=== PATIENT | male | born 1935 | race Caucasian/White ===

== ENCOUNTER 2018-11-11 15:32 | Inpatient (IN) | payer MEDICARE, OTHER ==
[~2018-11-11] VITALS: Ht 177.8 cm; Wt 84.6 kg
--- NOTE | ~2018-11-11 | HEMODYNAMI ---
PATIENT:PAMELA MATOS MEDICAL RECORD: [id number] : 35 LOCATION:[facility] D.2103 ADMISSION DATE: 11/11/18 Generatedon:11/14/20188:31 Patient name: PAMELA MATOS Patient #: [id number] : 1935 Date of study: 11/14/2018 Page: Of Hemodynamic Procedure Report Patient Data Patient Demographics Procedure consent was obtained First Name: PAMELA Gender: Male Last Name: CARLO : 1935 Patient #: [id number] Age: 83 year(s) Race: SSN: [id number] Additional ID: [id number] Contact details [address]: [address] [place] [address] State: [place] City: [place] Zip code: [address] Admission Admission Data Admission Date: 11/11/2018 Admission Time: 18:28 Arrival Date: 11/11/2018 Arrival Time: 18:28 Admit Source: Other Insurance Payor: Medicare Room #: D.2103 Height (in.): 70.08 BSA: 1.98 (m2) Height (cm.): 178 BMI: 25.25 (kg/m2) Weight (lbs.): 176.37 Weight (kg.): 80 Lab Results Lab Result Date: 11/14/2018 Lab Result Time: 0:00 Biochemistry Name Units Result Min Max BUN mg/dl 41 --(----)-* 7 18 Creatinine mg/dl 2.3 --(----)-* 0.6 1.3 eGFR ml/min 29 *-(----)-- 90 120 NONAFRICAN CBC Name Units Result Min Max Hemoglobin g/dl 15.1 --(-*--)-- 13.5 17.5 Procedure Procedure Types Cath Procedure Diagnostic Procedure Right Heart Right Heart Cath Right Heart Pharmacology Study Procedure Description Procedure Date Procedure Date: 11/14/2018 Procedure Start Time: 7:59 Procedure End Time: 8:28 Procedure Staff Name Function Ziyad Meléndez MD Performing Physician Duane Quintero RT Monitor Lindsay Carmen RT Scrub Alexandra Lang RN Nurse Max Barrera RN Nurse Procedure Data Cath Procedure Fluoroscopy Diagnostic fluoroscopy Total fluoroscopy Time: 5.9 time: 5.9 min min Diagnostic fluoroscopy Total fluoroscopy dose: 399 dose: 399 mGy mGy Contrast Material Contrast Material Type Amount (ml) Isovue 300 0 Entry Location Entry Primary Successful Side Size Upsize Upsize Entry Closure Barnes ccessful Closure Location (Fr) 1 (Fr) 2 (Fr) Remarks Device Remarks Femoral Right 7 Fr Manual vein Short Compression Estimated blood loss: 5 ml Diagnostic catheters Device Type Used For End Catheter Placement SWAN 7Fr Thermodilution Procedure cather (131F7P) Procedure Complications No complications Procedure Medications Medication Administration Route Dosage 0.9% NaCl I.V. 100 ml/hr Oxygen NC 4 l/min Heparin Flush Bag added to field 2 bags (1000units/500ml NS) Lidocaine 2% added to field 20 Versed I.V. 1 mg Fentanyl I.V. 50 mcg Adenosine IV 3mg/ml I.V. 50 mcg/kg/min Adenosine IV 3mg/ml I.V. 100 mcg/kg/min Adenosine IV 3mg/ml I.V. 150 mcg/kg/min Hemodynamics Rest BSA: 1.98 (m2) HGB: 15.1 (g/dl) O2 Consumption: Estimated: 239.44 (ml/min) O2 Co nsumption indexed: Estimated:120.93 (ml/min/m) Heart Rate: 89 (bpm) Oxygen Saturations Time Location Saturations Hgb (g/dl) O2 Content Use (%) (ml/L) 8:20 PA 76.3 8:21 RV 75.7 8:22 RA 74.3 Pressure Samples Time Site Value (mmHg) Purpose Heart Use Rate(bpm) 8:10 PA 70/28(43) Snapshot 88 8:10 PCW 35/40(33) Snapshot 87 8:11 PA 72/26(41) Snapshot 83 8:13 PA 74/28(43) Snapshot 86 8:16 PA 67/29(43) Snapshot 85 8:18 PA 64/30(43) Snapshot 88 8:19 RV 55/3,9 Snapshot 82 8:21 RA 17/15(11) Snapshot 76 Calculations Shunts (%) Right To 0.04 Content (ml/l) O2 Difference (ml/l) Left O2 MV 152.58 PV-PA(VA) O2 PA 156.69 PV-MV(VV) Snapshots Pre Cath Intra NCS Post Cath Vital Signs Time Heart Resp SPO2 etCO2 NIBP (mmHg) Rhythm Pain Sedation Rate (ipm) (%) (mmHg) Status Level (bpm) 7:53:14 86 27 97 0 144/86(127) NSR 0 (11) 10(A) , No pain 7:57:24 87 27 93 0 143/83(129) NSR 0 (11) 10(A) , No pain 8:01:30 84 21 91 0 141/94(108) NSR 0 (11) 10(A) , No pain 8:05:38 83 17 92 0 129/86(112) NSR 0 (11) 10(A) , No pain 8:09:44 84 21 91 0 132/78(105) NSR 0 (11) 10(A) , No pain 8:13:49 83 18 91 0 139/82(114) NSR 0 (11) 10(A) , No pain 8:17:59 87 21 93 0 141/81(120) NSR 0 (11) 10(A) , No pain 8:22:05 87 23 92 0 139/86(122) NSR 0 (11) 10(A) , No pain 8:26:13 90 23 92 0 147/90(115) NSR 0 (11) 10(A) , No pain Medications Time Medication Route Dose Verified Delivered Reason Notes Effectiveness by by 7:51:48 0.9% NaCl I.V. 100 ml/hr Alexandra Morris Per Rickey Lang physician RN RN 7:52:25 Oxygen NC 4 l/min Max Max for low 02 Lorigan Lorigan sats RN RN 7:52:36 Heparin Flush added 2 bags Max Max used for Bag to Lorigan Lorigan procedure (1000units/500ml field RN RN NS) 7:52:49 Lidocaine 2% added 20ml vial Max Max for local to Lorigan Lorigan anesthetic field RN RN 7:59:08 Versed I.V. 1 mg Max Max for Lorigan Lorigan sedation RN RN 7:59:18 Fentanyl I.V. 50 mcg Max Max for Holly Barrera sedation RN RN 8:11:53 Adenosine IV I.V. 50 Max Max Per 3mg/ml mcg/kg/min Lorigan Lorigan protocol RN RN 8:13:55 Adenosine IV I.V. 100 Max Max Per 3mg/ml mcg/kg/min Lorigan Lorigan protocol RN RN 8:16:52 Adenosine IV I.V. 150 Max Max Per 3mg/ml mcg/kg/min Lorigan Lorleslye protocol RN acquisitions librarian Log Time Note 6:57:51 Diagnostic Cath Status : Urgent 6:58:29 Informed consent obtained and on chart 7:01:34 Admit Source: Other 7:01:47 Arrival Date: 11/11/2018 6:28:00 PM 7:02:09 Insurance Payor : Medicare 7:02:53 Patient Weight : 176.37 lbs 7:02:58 Patient Height : 70.08 inches 7:09:29 Lab Result : Hemoglobin 15.1 g/dl 7:09:29 Lab Result : eGFR NONAFRICAN 29 ml/min 7:09:29 Lab Result : BUN 41 mg/dl 7:09:29 Lab Result : Creatinine 2.3 mg/dl 7:11:07 Procedure Status Urgent Heart Cath (IP). 7:11:11 Time tracking: Regular hours (M-F 7:00 - 5:00) 7:11:15 Plan of Care:Hemodynamics will remain stable., Cardiac rhythm will remain stable., Comfort level will be maintained., Respiratory function will remain adequate., Patient/ family verbilizes understanding of procedure., Procedure tolerated without complication., Recovers from procedure without complications.. 7:20:10 Duane FORTE(R) sent for patient. Start room use. 7:39:35 Patient received from ICU to CCL 2 Alert and oriented. Tansferred to table in Supine position. 7:39:36 Warm blankets applied, and marilynn hugger turned on for patient comfort. 7:39:36 Correct patient and procedure confirmed by team. 7:39:37 ECG and BP/O2 sat monitors applied to patient. 7:51:48 0.9% NaCl 100 ml/hr I.V. was administered by Alexandra Lang RN; Per physician; 7:52:07 Vital chart was started 7:52:25 Oxygen 4 l/min NC was administered by Max Barrera RN; for low 02 sats; 7:52:36 Heparin Flush Bag (1000units/500ml NS) 2 bags added to field was administered by Max Barrera RN; used for procedure; 7:52:49 Lidocaine 2% 20ml vial added to field was administered by Max Barrera RN; for local anesthetic; 7:53:05 Baseline sample Acquired. 7:53:10 Rhythm: sinus rhythm 7:53:14 Full Disclosure recording started 7:53:40 H&P Date Dictated: 11/11/2018 Within 30 days and on chart.. 7:53:41 Pre-procedure instructions explained to patient. 7:53:42 Pre-op teaching completed and patient verbalized understanding. 7:53:44 Family unavailable. 7:53:45 Patient NPO since Midnight. 7:53:47 Is the patient allergic to Iodine/contrast media? No. 7:53:48 Is patient on blood thinner?No 7:53:50 ACC The patient was administered the following blood thiners within the last 24 hours: None 7:53:53 Patient diabetic? No. 7:53:55 Previous problem with sedation/anesthesia? No ? 7:53:56 Snore? No 7:53:57 Sleep apnea? No 7:53:58 Deviated septum? No 7:53:59 Opens mouth fully? Yes 7:54:00 Sticks out tongue? Yes 7:54:09 Airway obstruction? Yes COPD, EMPHYSEMA 7:54:15 Dentures? Yes OUT 7:54:20 Pre procedure: right dorsailis pedis pulse 1+ Palpable, but thready & weak; easily obliterated 7:54:22 Patient pain scale 0/10 ?. 7:54:28 IV patent on arrival in left forearm with 0.9% NaCl at KVO. 7:54:30 Lab results completed and on chart. 7:54:37 Right groin area was prepped with chlora-prep and draped in sterile fashion 7:54:38 Alarms reviewed by R. N. 7:54:39 Sharps counted by scrub and verified by R.N. 7:56:02 Use device set Femoral Dx 7:56:11 Use device set Right Heart Kit 7:56:14 Tegaderm 4 x 4 ([id number]) opened to sterile field. 7:56:15 ACIST Manifold (52424) opened to sterile field. 7:56:16 ACIST Hand Control (39338) opened to sterile field. 7:56:17 ACIST Syringe (72448) opened to sterile field. 7:56:24 Bag Decanter (2002S) opened to sterile field. 7:56:25 Medline Cath Pack ([id number]) opened to sterile field. 7:56:41 SHEATH 7FR [place] (HIO968) opened to sterile field. 7:58:13 --------ALL STOP TIME OUT------ 7:58:14 Final Timeout: patient, procedure, and site verified with staff and physician. All members of the team are in agreement. 7:58:35 Right groin site verified by team. 7:58:43 Fire Safety Assessment: A--An alcohol-based skin anteseptic being used preoperatively., C--Open oxygen or nitrous oxide is being used. 7:58:46 Physical assessment completed. ASA score P 2 - A patient with mild systemic disease as per Ziyad Meléndez MD. 7:58:51 Sedation plan: IV Moderate Sedation Medication:Versed, Fentanyl 7:59:08 Versed 1 mg I.V. was administered by Max Barrera RN; for sedation; 7:59:11 Procedure started. 7:59:16 Local anesthetic to right femoral vein with Lidocaine 2% by Ziyad Meléndez MD.INITIAL ACCESS ONLY 7:59:18 Fentanyl 50 mcg I.V. was administered by Max Barrera RN; for sedation; 8:02:41 Procedure type changed to Cath procedure, Diagnostic procedure, Right Heart, Right Heart Cath, Right Heart Pharmacology Study 8:02:59 A 7 Fr Short sheath was inserted into the Right Femoral vein 8:03:09 A SWAN 7Fr Thermodilution cather (131F7P) was advanced over the wire and used for Procedure. 8:07:31 DIAGNOSTIC WIRE .025 150cm J (724778) opened to sterile field. 8:08:00 .025 J WIRE ADVANCED. 8:09:22 WIRE REMOVED. 8:11:53 Adenosine IV 3mg/ml 50 mcg/kg/min I.V. was administered by Max Barrera RN; Per protocol; 8:13:38 Timer 1 started at 8:11 AM, stopped at 8:13 AM, duration 00:02:18 sec. 8::55 Adenosine IV 3mg/ml 100 mcg/kg/min I.V. was administered by Max Barrera RN; Per protocol; 8::27 Timer 1 started at 8:13 AM, stopped at 8:16 AM, duration 00:02:45 sec. 8::52 Adenosine IV 3mg/ml 150 mcg/kg/min I.V. was administered by Max Barrera RN; Per protocol; ::55 Timer 1 started at 8:16 AM, stopped at 8:18 AM, duration 00:02:19 sec. 8:20:26 PA saturation: 76.3% 8:21:24 RV saturation: 75.7% 8:22:15 RA saturation: 74.3% 8::51 Catheter removed. 8:23:51 Sheath removed intact; hemostasis achieved with Manual Compression to the Right Femoral vein. 8::55 Procedure ended.(Physican Out) 8:25:03 Fluoroscopy time 05.90 minutes. 8:25:07 Fluoroscopy dose: 399 mGy 8:25:07 Flurop Dose total: 399 8:25:19 Dose Area Product 22462 mGy/cm. 8:25:35 Contrast amount:Isovue 300 0ml. 8:25:38 Sharps counted by scrub and verified by R.N. 8:25:39 Insertion/operative site no bleeding no hematoma. 8:25:43 Post Procedure Pulses reassessed and unchanged 8:25:46 Post-procedure physical assessment completed. ASA score P 2 - A patient with mild systemic disease as per Ziyad Meléndez MD. 8:25:48 Post procedure rhythm: unchanged. 8:25:50 Estimated blood loss: 5 ml 8:25:52 Post procedure instruction explained to patient.Patient verbalizes understanding. 8:25:52 Patient needs reinforcement of post procedure teaching. 8:26:14 Procedure and supply charges have been captured, reviewed, submitted and are correct. 8:26:17 Procedure Complication : No complications 8:28:32 Vital chart was stopped 8:28:33 See physician's report for complete and final results. 8:28:38 Report given to PCU. 8:28:43 Patient transfered to PCU with Bed. 8:28:46 Procedure ended. 8:28:46 Full Disclosure recording stopped 8:28:56 End room use (Document Last) 8:29:35 End room use (Document Last) Device Usage Item Name Manufacture Quantity Catalog Hospital Part Current Minima l Lot# / Number Charge Number Stock Stock Serial# Code Tegaderm 4 x 4 3M 1 1626W [id number] [id number] [id number] 5 (1626W) ACIST Manifold Acist 1 77243 354439 735251 422769 5 (73984) Medical Systems Inc ACIST Hand Acist 1 35635 569381 381549 208758 5 Control Medical (49025) Systems Inc ACIST Syringe Acist 1 77697 786391 748690 984924 20 (61870) Medical Systems Inc Bag Decanter Microtek 1 2001S 602292 07777 450107 5 (2001S) Medical Inc. Medline Cath Medline 1 [id number] 287859 92427 317164 5 Pack ([id number]) SHEATH 7FR Terumo 1 [id number] 359448 556281 277631 5 [place] (DRB853) SWAN 7Fr Warner 1 131F7P 129332 27290 269347 3 Thermodilution Lifesciences cather (131F7P) DIAGNOSTIC [facility] 1 109269 586552 682106 622440 2 WIRE .025 150cm J (785141) Signature Audit [place] Stage Time Signature Unsigned Intra-Procedure 11/14/2018 Max 8:29:35 AM Holly RN; Duane Quintero RT(R); Ziyad Meléndez MD [address] [place] [address]
[2018-11-11] MEDS ORDERED: PROVENTIL/2.5 MG/3 M INH (15:53)
[2018-11-11 16:23] LABS: BASOPHILS 0.5 % (0-2); EOSINOPHILS 2.2 % (0-7); HEMATOCRIT 48.2 % (42.0-54.0); HEMOGLOBIN 16.5 g/dL (13.5-17.5); IMMATURE GRANULOCYTES 0.3 % (0-5); LYMPHOCYTES 8.4 % (15-50); MCH 29.8 pg (26.0-34.0); MCHC 34.2 g/dL (31.0-37.0); MCV 87.2 fL (80.0-100.0); MEAN PLATELET VOLUME 10.3 fL (7.4-10.4); MONOCYTES 7.9 % (2-11); NEUTROPHILS 80.7 % (40-80); PLATELET COUNT 809 10x3/uL (130-400); RBC 5.53 10x6/uL (4.20-6.10); RDW 16.1 % (11.5-14.5); WBC 7.6 10x3/uL (4.8-10.8)
[2018-11-11 16:28] LABS: APTT 31.2 SECONDS (22.8-39.4); INR 1.24 (0.85-1.17); PROTIME 15.1 SECONDS (11.6-15.0)
[2018-11-11 16:34] LABS: ALBUMIN 3.2 g/dL (3.4-5.0); ALKALINE PHOSPHATASE 92 U/L (46-116); ALT (SGPT) 22 U/L (10-68); BILIRUBIN - TOTAL 1.21 mg/dL (0.2-1.3); CALC OSMOLALITY 296 mosm/kg (275-300); CALCIUM 8.9 mg/dL (8.5-10.1); CARBON DIOXIDE 27.6 mmol/L (21.0-32.0); CHLORIDE - SERUM 109 mmol/L (98-107); CREATININE - SERUM 2.4 mg/dL (0.6-1.3); GLUCOSE 122 mg/dL (74-106); POTASSIUM - SERUM 5.2 mmol/L (3.5-5.1); PROTEIN - SERUM 6.3 g/dL (6.4-8.2); SODIUM 144 mmol/L (136-145); UREA NITROGEN 39 mg/dL (7-18); eGFR NON AFRICAN AMERICAN 28 mL/min (90-120)
[2018-11-11 16:45] LABS: CKMB 2.7 U/L (0.0-3.6); CREATINE KINASE 74 UL (21-232); PRO BNP 10348 pg/mL (0-450); TROPONIN-I 0.028 ng/mL (0.000-0.060)
--- NOTE | 2018-11-11 18:57 | NUR ---
Spoke to ER Registration who stated the patient is not a [facility] patinet. She stated he has medicare and . Corrine Cardozo RN, CCM
[2018-11-11 20:00] VITALS: BP 182/95
[2018-11-12] VITALS (7 sets, daily range): BP systolic 123–182; BP diastolic 64–95; BMI 25.3
--- NOTE | 2018-11-12 03:26 | NUR ---
I have reviewed this patient and I concur with the Shift Assessment completed by the Licensed Practical Nurse today this shift.
[2018-11-12 05:16] LABS: ALBUMIN 2.9 g/dL (3.4-5.0); ANION GAP 13.3 mmol/L (8-16); BILIRUBIN - TOTAL 1.04 mg/dL (0.2-1.3); CALCIUM 8.6 mg/dL (8.5-10.1); CARBON DIOXIDE 30.8 mmol/L (21.0-32.0); CREATININE - SERUM 2.6 mg/dL (0.6-1.3); MAGNESIUM - SERUM 1.9 mg/dL (1.8-2.4); PHOSPHOROUS 4.3 mg/dL (2.5-4.9); PROTEIN - SERUM 6.3 g/dL (6.4-8.2)
[2018-11-12 05:18] LABS: POTASSIUM - SERUM 4.1 mmol/L (3.5-5.1)
[2018-11-12 05:26] LABS: BASOPHILS 0 % (0-2); EOSINOPHILS 0.2 % (0-7); HEMOGLOBIN 15.7 g/dL (13.5-17.5); IMMATURE GRANULOCYTES 0.2 % (0-5); LYMPHOCYTES 4.4 % (15-50); MCH 29.7 pg (26.0-34.0); MCHC 34.1 g/dL (31.0-37.0); MEAN PLATELET VOLUME 10.6 fL (7.4-10.4); MONOCYTES 0.7 % (2-11); NEUTROPHILS 94.5 % (40-80); PLATELET COUNT 714 10x3/uL (130-400); RBC 5.29 10x6/uL (4.20-6.10); RDW 15.8 % (11.5-14.5); WBC 5.4 10x3/uL (4.8-10.8)
--- NOTE | 2018-11-12 08:50 | NUR ---
CALLED AND SPOKE WITH Milagros SIMPSON ABOUT PT BP BEING 181/91 RIGHT ARM AND 170/90 IN LEFT ARM. REC'D NEW ORDERS FOR APRESOLINE 10 MG EVERY 6 HOURS FOR SYSTOLIC BP GREATER THAN 170.
--- NOTE | 2018-11-12 08:59 | NUR ---
TREATED B/P OF ORDERED.
[2018-11-12 09:41] LABS: APPEARANCE CLEAR (CLEAR); BILIRUBIN NEGATIVE (NEGATIVE); COLOR STRAW (YELLOW); GLUCOSE NEGATIVE (NEGATIVE); KETONE NEGATIVE (NEGATIVE); NITRITE NEGATIVE (NEGATIVE); PROTEIN TRACE mg/dL (NEGATIVE); SPECIFIC GRAVITY 1.005 (1.005-1.020); UROBILINOGEN NORMAL (NORMAL)
[2018-11-12 09:42] LABS: BACTERIA NONE SEEN /hpf (NONE SEEN); EPITHELIAL CELLS RARE /hpf (0-5); RED CELLS - URINE RARE /hpf (0-5); WHITE CELLS - URINE NSEEN /hpf (0-5)
--- NOTE | 2018-11-12 14:15 | NUR ---
I have reviewed this patient and I concur with the Shift Assessment completed by the Licensed Practical Nurse today this shift.
--- NOTE | 2018-11-12 18:17 | NUR ---
DR QUINN WAS CONTACTED ABOUT ORDER BVDS PT JUST HAD LEFT VDS LEGS TODAY PER DR QUINN, HOLD ON RT AT THIS TIME. LEFT NOT NEEDED. GCATES,RDMS
[2018-11-13 00:30] VITALS: BP 124/66
[2018-11-13 04:25] LABS: BASOPHILS 0 % (0-2); EOSINOPHILS 0 % (0-7); HEMATOCRIT 43.4 % (42.0-54.0); IMMATURE GRANULOCYTES 0.2 % (0-5); LYMPHOCYTES 1.8 % (15-50); MCH 29.9 pg (26.0-34.0); MCHC 34.6 g/dL (31.0-37.0); MCV 86.5 fL (80.0-100.0); MEAN PLATELET VOLUME 10.4 fL (7.4-10.4); MONOCYTES 2.4 % (2-11); NEUTROPHILS 95.6 % (40-80); PLATELET COUNT 695 10x3/uL (130-400); RBC 5.02 10x6/uL (4.20-6.10); RDW 15.6 % (11.5-14.5)
[2018-11-13 04:30] VITALS: BP 120/73
[2018-11-13 04:36] LABS: WBC 10.6 10x3/uL (4.8-10.8)
[2018-11-13 04:41] LABS: ANION GAP 9.8 mmol/L (8-16); CALCIUM 8.1 mg/dL (8.5-10.1); CARBON DIOXIDE 31.6 mmol/L (21.0-32.0); CREATININE - SERUM 2.3 mg/dL (0.6-1.3); MAGNESIUM - SERUM 1.7 mg/dL (1.8-2.4)
[2018-11-13 04:44] LABS: PHOSPHOROUS 2.9 mg/dL (2.5-4.9); POTASSIUM - SERUM 3.4 mmol/L (3.5-5.1)
--- NOTE | 2018-11-13 07:15 | NUR ---
PT RESTING IN BED, SHIFT ASSESSMENT PERFORMED. DENIES ANY NEEDS AT THIS TIME, WILL CONT TO FOLLOW POC
[2018-11-13 08:35] VITALS: BP 137/71
--- NOTE | 2018-11-13 12:20 | NUR ---
PT RESTING IN BED, DENIES ANY NEEDS AT THIS TIME, WILL CONT TO FOLLOW POC
[2018-11-13 12:45] VITALS: BP 130/68
[2018-11-13 16:45] VITALS: BP 152/61
[2018-11-13 16:51] VITALS: Ht 177.8 cm; Wt 84.6 kg
[2018-11-13 17:23] LABS: % SATURATION 15 % (15-55); IRON 43 ug/dl (35-150); TOTAL IRON BIND CAPACITY 275 ug/dl (260-445); UNSAT IRON BIND CAPACITY 232 ug/dl (150-375)
--- NOTE | 2018-11-13 18:07 | NUR ---
PT SITTING UP IN BED WATCHING TV. DENIES ANY NEEDS AT THIS TIME, CALL LIGHT WITHIN REACH. WILL CONT TO FOLLOW POC
[2018-11-13 18:25] LABS: BASOPHILS 0 % (0-2); EOSINOPHILS 0 % (0-7); HEMATOCRIT 43.6 % (42.0-54.0); HEMOGLOBIN 15.1 g/dL (13.5-17.5); IMMATURE GRANULOCYTES 0.1 % (0-5); LYMPHOCYTES 1.2 % (15-50); MCH 30.1 pg (26.0-34.0); MCHC 34.6 g/dL (31.0-37.0); MEAN PLATELET VOLUME 10.5 fL (7.4-10.4); MONOCYTES 1.2 % (2-11); NEUTROPHILS 97.5 % (40-80); PLATELET COUNT 772 10x3/uL (130-400); RBC 5.01 10x6/uL (4.20-6.10); RDW 15.9 % (11.5-14.5)
[2018-11-13 18:31] LABS: WBC 13.9 10x3/uL (4.8-10.8)
[2018-11-13 19:28] LABS: ANION GAP 16.1 mmol/L (8-16); CALCIUM 8.4 mg/dL (8.5-10.1); CARBON DIOXIDE 26.6 mmol/L (21.0-32.0); CREATININE - SERUM 2.3 mg/dL (0.6-1.3); POTASSIUM - SERUM 3.7 mmol/L (3.5-5.1)
[2018-11-14 01:14] VITALS: BP 125/66
[2018-11-14 05:07] VITALS: BP 102/49
[2018-11-14 05:43] LABS: BASOPHILS 0 % (0-2); EOSINOPHILS 0 % (0-7); HEMATOCRIT 43.4 % (42.0-54.0); HEMOGLOBIN 14.9 g/dL (13.5-17.5); IMMATURE GRANULOCYTES 0.4 % (0-5); LYMPHOCYTES 1.8 % (15-50); MCH 29.6 pg (26.0-34.0); MCHC 34.3 g/dL (31.0-37.0); MCV 86.3 fL (80.0-100.0); MEAN PLATELET VOLUME 10.3 fL (7.4-10.4); MONOCYTES 1.4 % (2-11); NEUTROPHILS 96.4 % (40-80); PLATELET COUNT 710 10x3/uL (130-400); RBC 5.03 10x6/uL (4.20-6.10); WBC 13.4 10x3/uL (4.8-10.8)
[2018-11-14 06:30] LABS: CALCIUM 8.2 mg/dL (8.5-10.1); CARBON DIOXIDE 28.3 mmol/L (21.0-32.0); CREATININE - SERUM 2.1 mg/dL (0.6-1.3); MAGNESIUM - SERUM 1.7 mg/dL (1.8-2.4); PHOSPHOROUS 3.5 mg/dL (2.5-4.9); POTASSIUM - SERUM 3.3 mmol/L (3.5-5.1)
--- NOTE | 2018-11-14 08:12 | NUR ---
PATIENT IS RESTING QUIETLY, DENIES ANY NEEDS AT THIS TIME.
[2018-11-14 08:47] VITALS: BP 131/80
--- NOTE | 2018-11-14 09:19 | NUR ---
PATIENT RETURNED FROM RIGHT HEART CATH BY DR GRAJEDA. WENT IN THROUGH [facility], THERE IS A DRESSING IN PLACE. THEY WERE CHECKING HIS PRESSURES.
--- NOTE | 2018-11-14 09:21 | NUR ---
PATIENT IS RESTING ON HIS BACK , HE IS TALKING AND ALERT AND ORIENTED. HE HAS FRIENDS AT BEDSIDE.
--- NOTE | 2018-11-14 10:59 | NUR ---
Nutrition Follow-up: NPO this AM for heart cath. Reports good appetite otherwise. Diet: NPO PO intake: 100% Wt: 176# Last BM: 11/13 Labs noted: K+ 3.3, Ca 8.2, Glu 189, PO4 3.5 Meds noted: Prednisone, Folate, NS @ 40, KDur When medically feasible, may consider cardiac carb consistent diet (K+ low, PO4 wnl; Glu elevated since admit). RD following.
[2018-11-14 12:30] VITALS: BP 130/67
[2018-11-14 16:40] VITALS: BP 112/62
--- NOTE | 2018-11-14 17:26 | NUR ---
PATIENT IS HAVING A COUGHING FIT. O2 UP TO 12 HIGH FLOW WITH HUMIDITY.
--- NOTE | 2018-11-14 17:37 | NUR ---
REPORTED COUGHING FIT TO JOELLE MAYES, AND DR SANTOS.
[2018-11-14 20:00] VITALS: BP 118/76
[2018-11-15 00:32] VITALS: BP 145/78
[2018-11-15 04:00] VITALS: BP 139/75
[2018-11-15 04:38] LABS: BASOPHILS 0 % (0-2); EOSINOPHILS 0 % (0-7); HEMATOCRIT 44.6 % (42.0-54.0); HEMOGLOBIN 15.3 g/dL (13.5-17.5); IMMATURE GRANULOCYTES 0.3 % (0-5); LYMPHOCYTES 3.2 % (15-50); MCH 29.8 pg (26.0-34.0); MCHC 34.3 g/dL (31.0-37.0); MCV 86.9 fL (80.0-100.0); MEAN PLATELET VOLUME 10.2 fL (7.4-10.4); MONOCYTES 3.6 % (2-11); NEUTROPHILS 92.9 % (40-80); PLATELET COUNT 729 10x3/uL (130-400); RBC 5.13 10x6/uL (4.20-6.10); RDW 16.2 % (11.5-14.5); WBC 11.2 10x3/uL (4.8-10.8)
[2018-11-15 05:01] LABS: ANION GAP 11.2 mmol/L (8-16); CALCIUM 8.7 mg/dL (8.5-10.1); CARBON DIOXIDE 30.3 mmol/L (21.0-32.0); CREATININE - SERUM 2.1 mg/dL (0.6-1.3); MAGNESIUM - SERUM 1.9 mg/dL (1.8-2.4)
[2018-11-15 05:02] LABS: POTASSIUM - SERUM 4.5 mmol/L (3.5-5.1)
--- NOTE | 2018-11-15 07:30 | NUR ---
A/A/OX4. STATES HE IS WANTING TO BE DISCHARGED TODAY. DENIES ANY SOB OR PAIN. 02 ON PER N/C AT 4L/M HF. IV PATENT TO LEFT FOREARM WITHOUT REDNESS OR EDEMA. ASSESSMENT COMPLETED AND WILL CONTINUE POC.
[2018-11-15 08:50] VITALS: BP 149/92
[2018-11-15 11:10] LABS: ANA REFLEX - DIRECT Negative (Negative)
[2018-11-15 12:21] VITALS: BP 146/54
--- NOTE | 2018-11-15 14:17 | NUR ---
I have reviewed this patient and I concur with the Shift Assessment completed by the Licensed Practical Nurse today this shift.
[2018-11-15 16:50] VITALS: BP 143/89
--- NOTE | 2018-11-15 19:28 | NUR ---
PT CARE ASSUMED. BEDSIDE REPORT COMPLETED. PT IN BED RR EVEN AND UNLABORED. NO S/S OF DISTRESS NOTED AT THIS TIME. PT DENIES NEEDS. CALL LIGHT IN REACH. WILL CPOC.
[2018-11-15 20:00] VITALS: BP 125/79
[2018-11-16 00:08] VITALS: BP 142/78
[2018-11-16 04:00] VITALS: BP 127/78
[2018-11-16 05:16] LABS: BASOPHILS 0 % (0-2); EOSINOPHILS 0 % (0-7); HEMATOCRIT 43.4 % (42.0-54.0); HEMOGLOBIN 15.1 g/dL (13.5-17.5); IMMATURE GRANULOCYTES 0.4 % (0-5); MCHC 34.8 g/dL (31.0-37.0); MCV 86.3 fL (80.0-100.0); MEAN PLATELET VOLUME 10.3 fL (7.4-10.4); MONOCYTES 2.2 % (2-11); NEUTROPHILS 95.4 % (40-80); PLATELET COUNT 677 10x3/uL (130-400); RBC 5.03 10x6/uL (4.20-6.10); RDW 16.3 % (11.5-14.5); WBC 8.9 10x3/uL (4.8-10.8)
[2018-11-16 05:28] LABS: ANION GAP 12.6 mmol/L (8-16); CALCIUM 8.8 mg/dL (8.5-10.1); CARBON DIOXIDE 28.3 mmol/L (21.0-32.0); CREATININE - SERUM 1.7 mg/dL (0.6-1.3); MAGNESIUM - SERUM 2.1 mg/dL (1.8-2.4); PHOSPHOROUS 3.5 mg/dL (2.5-4.9); POTASSIUM - SERUM 4.9 mmol/L (3.5-5.1)
--- NOTE | 2018-11-16 07:00 | NUR ---
RECEIVED REPORT. ASSUMED CARE OF PATIENT. RESTING IN BED WITH EYES OPEN, WONDERING IF HE WILL GET TO GO HOME TODAY. CALL LIGHT WITHIN REACH. DENIES NEEDS AT THIS TIME. IV FLUIDS INFUSING TO LEFT HAND. NO DISTRESS.
[2018-11-16 09:36] VITALS: BP 155/90
[2018-11-16 13:42] VITALS: BP 131/80
[2018-11-16] MEDS ORDERED: NORVASC5 MG PO (15:22)
[2018-11-16] MEDS ORDERED: PREDNISONE10 MG PO (15:23)
[2018-11-16] MEDS ORDERED: PEPCID PO (15:23)
[2018-11-16] MEDS ORDERED: LEVOFLOXACIN500 MG PO (15:40)
[2018-11-16] MEDS ORDERED: COUMADIN5 MG PO (16:15)
[2018-11-16] MEDS ORDERED: LOVENOX30 MG/0.3 SC (16:15)
--- NOTE | 2018-11-16 16:25 | NUR ---
SPOKE WITH DR DASIA CHEUNG ANTICOAGULANT. SHE REC LOVENOX 30 MG SQ QD X 7 DAYS, AND COUMADIN 5 MG DAILY. ADVISED JOELLE SIMPSON [facility], OF RECOMMENDATIONS AND AGREED. RX FOR COUMADIN ISSUED TO [facility]. THEY DO NOT HAVE LOVENOX 30MG IN STOCK. CALLED [facility] [address] AND HAVE IN STOCK, RX CALLED THERE, SPOKE WITH SADI, PHARMACIST. [phone].
--- NOTE | 2018-11-16 16:51 | NUR ---
PATIENT JUST RECEIVED PM MEAL TRAY AND CONSUMING DINNER. INFORMED PATIENT WHEN HE GETS FINISHED, TURN HIS CALL LIGHT ON AND THIS TRAVELING AUDITOR WILL COME AND REMOVE HIS IV. PATIENT VERBALIZED UNDERSTANDING.
--- NOTE | 2018-11-16 17:01 | MORECARE ---
CASE MANAGEMENT DISCHARGE SUMMARY PATIENT: PAMELA MATOS UNIT: [id number] ADM DATE: 11/11/18 AGE: 83 : 35 SEX: M ROOM/BED: D.2103 AUTHOR: KATIE CRUZ PHYSICIAN: REFERRING PHYSICIAN: JUNE SCHRADER MD DATE OF SERVICE: 11/16/18 Discharge Plan Patient Name: PAMELA MATOS Facility: [facility]:[place] : 1935 Planned Disposition: Anticipated Discharge Date: Discharge Date: Expected LOS: Initial Reviewer: [email or web address] Initial Review Date: 11/11/2018 Generated: 11/16/18 6:00 pm Coverage Notice Reviewer: [email or web address] - Bhavani Allan Notice Issued Date-Time: 11/16/2018 12:12 Notice Type: Medicare Outpatient Observation Notice Notice Delivered To: Patient Relationship to Patient: Self Supervisor [employer] Name: Pamela Matos Delivery Method: HAND - Hand Delivered Megan Days: Prior Verbal Notification: Recipient Understood Notice: Yes Recipient Signature: Yes Med Rec Note Co-signed by Attending: Coverage Notice Comment: Patient Name: PAMELA MATOS Page [phone] at 1701 All edits/amendments must be made on the electronic document DICTATION DATE: 11/16/181699 ENGINEERING AND OPERATIONS DIRECTOR: JOHNNA 11/16/181699 RPT#: [id number] DC DATE: STATUS: ADM IN [facility] [address] [place] [address] END OF REPORT
--- NOTE | 2018-11-16 17:15 | NUR ---
22 GAUGE IV CATHETER REMOVED FROM LEFT WRIST. CATHETER TIP INTACT. NO BLEEDING FROM SITE. 2X2 GAUZE APPLIED AND SECURED WITH BANDAID. TOELRATED IV REMOVAL WELL.
--- NOTE | 2018-11-16 17:19 | MORECARE ---
CASE MANAGEMENT DISCHARGE SUMMARY PATIENT: PAMELA MATOS UNIT: [id number] ADM DATE: 11/11/18 AGE: 83 : 35 SEX: M ROOM/BED: D.2103 AUTHOR: KATIE CRUZ PHYSICIAN: REFERRING PHYSICIAN: JUNE SCHRADER MD DATE OF SERVICE: 11/16/18 Discharge Plan Patient Name: PAMELA MATOS Facility: [facility]:[place] : 1935 Planned Disposition: Anticipated Discharge Date: Discharge Date: Expected LOS: Initial Reviewer: [email or web address] Initial Review Date: 11/11/2018 Generated: 11/16/18 6:19 pm Comments DCP- Discharge Planning Updated by [email or web address]: Bhavani Allan on 11/16/18 4:[address] CM met with patient for DC planning needs. CM explained the purpose of interview, patient gives permission for same. Patient states he lives independently @[facility], in [address] and a friend will drive him home today. Patient routinely drives himself. Patient gives permission to speak with his son, Jason Matos @#[phone] (primary). Patient states he is independent with his care. PCP: [place]. Pharmacy: [place], [facility]. His regular pharmacy is closed today, so his Lovenox was called in to [facility] and discharge meds were called to [facility], per nurse on medical floor. Patient states he does not need HHS, that he will be able to give himself his shots. DME: walker (does not use) from the [place], Home O2 and portable, shower chair, grab bars. Emergency contact: Jason Matos (son) [phone]. Community Resources: none. Patient states he does not require additional services at this time. Patient states he is close to the facility dining area. He states he feels safe discharging to his home and his son checks on him frequently. Denies being admitted to a hospital within past 30 days. CM will follow and assist with DC needs PRN. Coverage Notice Reviewer: [id number] - Bhavani Allan Notice Issued Date-Time: 11/16/2018 12:12 Notice Type: Medicare Outpatient Observation Notice Notice Delivered To: Patient Relationship to Patient: Self Svp [employer] Cooking Name: Pamela Matos Delivery Method: HAND - Hand Delivered Megan Days: Prior Verbal Notification: Recipient Understood Notice: Yes Recipient Signature: Yes Med Rec Note Co-signed by Attending: Coverage Notice Comment: Last DP export: 11/16/18 4:01 p Patient Name: PAMELA MATOS Page [phone] at 1719 All edits/amendments must be made on the electronic document DICTATION DATE: 11/16/181718 FIRE TRUCK DRIVER: JOHNNA 11/16/181718 RPT#: [id number] DC DATE: STATUS: ADM IN [facility] [address] [place] [address] END OF REPORT
--- NOTE | 2018-11-16 17:26 | MORECARE ---
CASE MANAGEMENT DISCHARGE SUMMARY PATIENT: PAMELA MATOS UNIT: [id number] ADM DATE: 11/11/18 AGE: 83 : 35 SEX: M ROOM/BED: D.2103 AUTHOR: ANTHONYDOC PHYSICIAN: REFERRING PHYSICIAN: JUNE SCHRADER MD DATE OF SERVICE: 11/16/18 Discharge Plan Patient Name: PAMELA MATOS Facility: [facility]:[place] : 1935 Planned Disposition: Anticipated Discharge Date: Discharge Date: Expected LOS: Initial Reviewer: [email or web address] Initial Review Date: 11/11/2018 Generated: 11/16/18 6:25 pm Comments DCP- Discharge Planning Updated by [email or web address]: Bhavani Allan on 11/16/18 4:[address] CM met with patient for DC planning needs. CM explained the purpose of interview, patient gives permission for same. Patient states he lives independently @[facility], in [address] and a friend will drive him home today. Patient routinely drives himself. Patient gives permission to speak with his son, Jason Matos @[phone] (primary). Patient states he is independent with his care. [place]acy[place], [facility]. His regular pharmacy is closed today, so his Lovenox was called in to [facility] with co-pay $50.00 and discharge meds were called to [facility], per nurse on medical floor. CM made patient aware of the different pharmacies used. Patient states he does not need HHS, that he will be able to give himself his shots. DME: walker (does not use) from the [place], Home O2 and portable, shower chair, grab bars. Emergency contact: Jason Matos (son) [phone]. Community Resources: none. Patient states he does not require additional services at this time. Patient states he is close to the facility dining area. He states he feels safe discharging to his home and his son checks on him frequently. Denies being admitted to a hospital within past 30 days. CM will follow and assist with DC needs PRN. Coverage Notice Reviewer: [email or web address] - Bhavani Jerrell Notice Issued Date-Time: 11/16/2018 12:12 Notice Type: Medicare Outpatient Observation Notice Notice Delivered To: Patient Relationship to Patient: Self Rrt Name: Pamela Matos Delivery Method: HAND - Hand Delivered Megan Days: Prior Verbal Notification: Recipient Understood Notice: Yes Recipient Signature: Yes Med Rec Note Co-signed by Attending: Coverage Notice Comment: Last DP export: 11/16/18 4:19 p Patient Name: PAMELA MATOS Page [phone] at 1726 All edits/amendments must be made on the electronic document DICTATION DATE: 11/16/181724 RISK CONTROL MANAGER: JOHNNA 11/16/181724 RPT#: [id number] DC DATE: STATUS: ADM IN [facility] [address] [place] [address] END OF REPORT
--- NOTE | 2018-11-16 17:45 | NUR ---
DISCHARGE INSTRUCTIONS PROVIDED TO PATIENT. NO FAMILY PRESENT. PATIENT VERBALIZED UNDERSTANDING OF ALL INSTRUCTIONS PROVIDED. INSTRUCTIONS PROVIDED TWICE DUE TO PATIENT CONFUSING WHEN TO NEGATIVE RESTORER HIS MEDICATION VS WHEN TO CALL AND SCHEDULE HIS FOLLOW UP APPOINTMENTS. DIRECT NUMBER TO THE NURSES STATION PROVIDED AND ASKED PATIENT TO PLEASE CALL IF HE GETS HOME AND DOES NOT REMEMBER THE INSTRUCTIONS OR HAS ANY QUESTIONS. PATIENT VERBALIZED HIS UNDERSTANDING.
--- NOTE | 2018-11-16 18:06 | NUR ---
PATIENT LEFT UNIT VIA WHEELCHAIR WITH ALL PERSONAL BELONGINGS AT THIS TIME. PATIENT DISCHARGED TO HOME. PATIENT IN NO DISTRESS UPON LEAVING UNIT.
--- NOTE | 2018-11-18 07:37 | MORECARE ---
CASE MANAGEMENT DISCHARGE SUMMARY PATIENT: PAMELA MATOS UNIT: [id number] ADM DATE: 11/11/18 AGE: 83 : 35 SEX: M ROOM/BED: D.210 AUTHOR: ANTHONY,DOC PHYSICIAN: REFERRING PHYSICIAN: JUNE SCHRADER MD DATE OF SERVICE: 11/18/18 Discharge Plan Patient Name: PAMELA MATOS Facility: [facility]:[place] : 1935 Planned Disposition: Home Anticipated Discharge Date: 11/16/18 Discharge Date: 11/16/2018 Expected LOS: 5 Initial Reviewer: [email or web address] Initial Review Date: 11/11/2018 Generated: 11/18/18 8:36 am Comments DCP- Discharge Planning Updated by [email or web address]: Bhavani Allan on 11/16/18 4:[address] CM met with patient for DC planning needs. CM explained the purpose of interview, patient gives permission for same. Patient states he lives independently @[facility], in [address] and a friend will drive him home today. Patient routinely drives himself. Patient gives permission to speak with his son, Jason Matos @[phone] (primary). Patient states he is independent with his care. PCP: [facility]. Pharmacy: [facility] . His regular pharmacy is closed today, so [facility].00 and discharge meds were called to [facility], per nurse on medical floor. CM made patient aware of the different pharmacies used. Patient states he does not need HHS, that he will be able to give himself his shots. D[facility] not [facility], Home O2 and portable, shower chair, grab bars. Emergency contact: Jason Matos (son) [phone]. Community Resources: none. Patient states he does not require additional services at this time. Patient states he is close to the facility dining area. He states he feels safe discharging to his home and his son checks on him frequently. Denies being admitted to a hospital within past 30 days. CM will follow and assist with DC needs PRN. Coverage Notice Reviewer: [email or web address] Serena Allan Notice Issued Date-Time: 11/16/2018 12:12 Notice Type: Medicare Outpatient Observation Notice Notice Delivered To: Patient Relationship to Patient: Self Custodian Supervisor Name: Pamela Matos Delivery Method: HAND - Hand Delivered Megan Days: Prior Verbal Notification: Recipient Understood Notice: Yes Recipient Signature: Yes Med Rec Note Co-signed by Attending: Coverage Notice Comment: Last DP export: 11/16/18 4:26 p Patient Name: PAMELA MATOS Page [phone] at 0737 All edits/amendments must be made on the electronic document DICTATION DATE: 11/18/1836 MACHINE REPAIRER: JOHNNA 11/18/1836 RPT#: [id number] DC DATE:11/16/18 STATUS: DIS IN [facility] [address] [place] [address] END OF REPORT
[2018-11-18 13:09] LABS: ANTI-GLOMERULAR BASMENT MEMBRN 3 units (0-20)
--- NOTE | 2018-11-19 13:38 | EC ---
PATIENT:PAMELA MATOS DATE OF SERVICE: 11/11/18 SEX: M MEDICAL RECORD: [id number] DATE OF : 35 LOCATION:D.M2 D.210 AGE OF PATIENT: 83 ADMISSION DATE: 11/11/18 REFERRING PHYSICIAN: INTERPRETING PHYSICIAN: LUDIVINA CHAU MD ECHOCARDIOGRAM REPORT ECHO CHARGES 4 ECHO COMPLETE Date: 11/12/18 CLINICAL DIAGNOSIS: ELEVATED PRO-BNP, BILATERAL LE EDEMA/SOB ECHOCARDIOGRAPHIC MEASUREMENTS (adult normal given) AC root (d.<3.7cm) 3.4 cm LV Septum d (<1.2 cm> 1.4 cm Valve Excursion 2.0 cm LV Septum (systole) 1.6 cm Left Atria (s.<4.0cm> 3.7 cm LVPW d(<1.2cm) 1.4 cm RV (d.<2.3cm) 5.1 cm LVPW (sytole) 1.8 cm LV diastole(<5.6CM) 4.9 cm MV E-F(>70mm/sec) cm LV systole cm LVOT Diameter 1.9 cm MV exc.(>10mm) 1.5 cm Est.ejection fraction (50-75%) % DOPPLER: LVIT cm/sec A 80.0 cm/sec E 45.0 cm/sec LA cm/sec RVSP 90 mmHg LVOT 97 cm/sec AOP1/2T m/s Asc. Ao 130 cm/sec RVOT 76 cm/sec RA cm/sec PA 119 cm/sec AV Gradient Peak 6.80 mmHg AV Mean 3.25 mmHg AV Area 2.4 cm MV Gradient Peak 3.56 mmHg MV Mean 1.36 mmHg MV Area cm COMMENTS: Torpedo Worker: 2 KITA REICH Clinical Services Consultant: 3 Dr. Hernandez TAPE# PACS Pericardial Effusion N DATE OF SERVICE: FINDINGS: 1. Left ventricular chamber size is within normal limits. Left ventricular systolic function is preserved at 50%. 2. Left atrium is within normal limits at 3.7 cm. Right atrium and right ventricular chamber sizes are severely dilated. 3. Valvular structures have normal structure and motion. 4. Doppler interrogation reveals severe tricuspid regurgitation. No other valvular insufficiency or stenosis. Pulmonary systolic pressure is markedly ECHOCARDIOGRAM REPORT [id number] PAMELA MATOS elevated, estimated 90 mmHg. 5. No evidence of pericardial effusion or left ventricular thrombus. TRANSINT:[id number] Voice Confirmation ID: [id number] DOCUMENT ID: [id number] LUDIVINA CHAU MD at 1338 CC: [id number] DICTATION DATE: 11/12/18 1214 SCHEDULING COORDINATOR: 11/12/18 1248 DIS IN 11/16/18 [place] [id number] [place] [id number]
[2018-11-19 16:09] LABS: ANCA - ANTIMYELOPEROXIDASE <9.0 U/mL (0.0-9.0); ANCA - ANTIPROTEINASE 3 <3.5 U/mL (0.0-3.5); ANCA - ATYPICAL <1:20 titer (Neg:<1:20); ANCA - CYTOPLASMIC <1:20 titer (Neg:<1:20); ANCA - PERINUCLEAR <1:20 titer (Neg:<1:20)
== END 2018-11-16 18:15 | disposition home or self-care (01) | DRG 286 ==
LOC: D.ER 15:32 → D.M2 18:28
PROVIDERS: Family Medicine; Internal Medicine Cardiovascular Disease; Internal Medicine Hematology & Oncology; Internal Medicine Pulmonary Disease; ADMIT Emergency Medicine; ATTEND Emergency Medicine
PROC: B31S1ZZ Fluoroscopy of Right Pulmonary Artery using Low Osmolar Contrast (ICD-10-PCS; 2018-11-14)
PROC: 4A023N6 Measurement of Cardiac Sampling and Pressure, Right Heart, Percutaneous Approach (ICD-10-PCS; 2018-11-14)
PROC: B2141ZZ Fluoroscopy of Right Heart using Low Osmolar Contrast (ICD-10-PCS; principal; 2018-11-14 07:20)
DX: I13.0 Hypertensive heart and chronic kidney disease with heart failure and stage 1 through stage 4 chronic kidney disease, or unspecified chronic kidney disease (principal); J96.21 Acute and chronic respiratory failure with hypoxia; J18.9 Pneumonia, unspecified organism; I26.99 Other pulmonary embolism without acute cor pulmonale; J44.1 Chronic obstructive pulmonary disease with (acute) exacerbation; N18.4 Chronic kidney disease, stage 4 (severe); N17.9 Acute kidney failure, unspecified; E87.0 Hyperosmolality and hypernatremia; J44.0 Chronic obstructive pulmonary disease with (acute) lower respiratory infection; I50.9 Heart failure, unspecified; I73.9 Peripheral vascular disease, unspecified; E87.5 Hyperkalemia; D47.3 Essential (hemorrhagic) thrombocythemia; T17.900A Unspecified foreign body in respiratory tract, part unspecified causing asphyxiation, initial encounter; X58.XXXA Exposure to other specified factors, initial encounter; N28.1 Cyst of kidney, acquired; I27.20 Pulmonary hypertension, unspecified; D75.1 Secondary polycythemia